=== PATIENT | male | born 1955 | race Caucasian/White ===

== ENCOUNTER → 2017-04-13 07:54 | Outpatient (CLI) | payer BC | END | disposition home or self-care (01) | LOC: D.CT 04-02 11:00 | DX: R91.1 Solitary pulmonary nodule (principal) ==

== ENCOUNTER → 2017-11-06 09:09 | Outpatient (CLI) | payer BC | END | disposition home or self-care (01) | LOC: D.CT 09:09 | DX: R07.9 Chest pain, unspecified (principal) ==